=== PATIENT | female | born 1970 | race African-American/Black ===

== ENCOUNTER 2017-07-31 12:11 | Emergency (ER) | payer BC ==
[2017-07-31 12:25] VITALS: BP 135/85
[2017-07-31] MEDS ORDERED: ASPIRIN 81 MG TABLET, CHEWABLE PO ONE (12:42)
--- NOTE | 2017-07-31 12:43 | ER Document Report ---
ED Medical Screen (RME) - General Chief Complaint: Chest Pain Stated Complaint: NAUSEA Time Seen by Provider: 07/31/17 12:38 Notes: RAPID MEDICAL EVALUATION DISCLOSURE I have seen this patient as part of a Rapid Medical Evaluation and, if applicable, placed any initially appropriate orders. The patient will be seen and fully evaluated, including a full history and physical exam, by a provider ( in Main ED or Fast Track) when a room becomes available. 46-year-old female here with complaints of chest pain shortness of breath nausea vomiting left arm tingling lightheadedness ongoing for the past 1 week. The symptoms are sometimes worse with exertion, specifically going up and down the steps. She has a chronic cough ongoing for the past 2 months and sometimes the chest pain is worse with coughing. She has not tried taking anything for the symptoms. Denies prior history of CAD. EXAM Clear to auscultation bilaterally Regular rate and rhythm TRAVEL OUTSIDE OF THE [place] IN LAST 30 DAYS: No - Related Data Allergies/Adverse Reactions: No Known Allergies Allergy (Verified 02/05/16 12:20) Past Medical History Pulmonary Medical History: Reports: Hx Bronchitis - as a child Renal/ Medical History: Reports: Hx Ectopic . Denies: Hx Ovarian Cysts Malignancy Medical History: Denies: Hx Breast Cancer, Hx Ovarian Cancer Psychiatric Medical History: Reports: Hx Bipolar Disorder Past Surgical History: Reports: Hx Abdominal Surgery - ectopic , Hx Dilation and Curettage, Hx Gynecologic Surgery - r/t gonorrhea, Hx Tonsillectomy - Immunizations Immunizations up to date: Yes Hx Diphtheria, Pertussis, Tetanus Vaccination: Yes Physical Exam - Vital signs Vitals: Temp Pulse Resp BP Pulse Ox 97.9 F 99 16 135/85 H 96 07/31/17 12:23 07/31/17 12:23 07/31/17 12:23 07/31/17 12:23 07/31/17 12:23 Course - Vital Signs Vital signs: Temp Pulse Resp BP Pulse Ox 97.9 F 99 16 135/85 H 96 07/31/17 12:23 07/31/17 12:23 07/31/17 12:23 07/31/17 12:23 07/31/17 12:23
--- NOTE | 2017-07-31 13:38 | RADIOLOGY REPORT (SQ) ---
EXAM DESCRIPTION: CHEST 2 VIEWS COMPLETED DATE/TIME: 07/31/2017 1:26 pm REASON FOR STUDY: CP SOB COMPARISON: 11/07/2015 EXAM PARAMETERS: NUMBER OF VIEWS: two views TECHNIQUE: Digital Frontal and Lateral radiographic views of the chest acquired. RADIATION DOSE: NA LIMITATIONS: none FINDINGS: LUNGS AND PLEURA: No opacities, masses or pneumothorax. No pleural effusion. MEDIASTINUM AND HILAR STRUCTURES: No masses or contour abnormalities. HEART AND VASCULAR STRUCTURES: Heart normal size. No evidence for failure. BONES: No acute findings. HARDWARE: None in the chest. OTHER: No other significant finding. IMPRESSION: NO ACUTE RADIOGRAPHIC FINDING IN THE CHEST. TECHNICAL DOCUMENTATION: JOB ID: [id number] [email or web address]- All Rights Reserved Reading location - IP/workstation name: [email or web address]
[2017-07-31 13:44] LABS: ABSOLUTE BASOPHILS # (AUTO) 0.1 10^3/uL (0.0-0.2); ABSOLUTE EOSINOPHILS # (AUTO) 0.1 10^3/uL (0.0-0.6); ABSOLUTE LYMPHOCYTES (AUTO) 1.6 10^3/uL (0.5-4.7); ABSOLUTE MONOCYTES (AUTO) 0.4 10^3/uL (0.1-1.4); ABSOLUTE NEUT (AUTO) 4.4 10^3/uL (1.7-8.2); BASOPHILS % (AUTO) 0.8 % (0-2); EOSINOPHILS % (AUTO) 1.9 % (0-6); HEMATOCRIT 33.8 % (36.0-47.0); HEMOGLOBIN 10.5 g/dL (12.0-15.5); LYMPHOCYTES % (AUTO) 23.9 % (13-45); MEAN CORPUSCULAR HEMOGLOBIN 22.7 pg (27.0-33.4); MEAN CORPUSCULAR HGB CONC 31.1 g/dL (32.0-36.0); MEAN CORPUSCULAR VOLUME 73 fl (80-97); MONOCYTES % (AUTO) 6.8 % (3-13); PLATELET COUNT 341 10^3/uL (150-450); RED BLOOD COUNT 4.62 10^6/uL (3.72-5.28); RED CELL DISTRIBUTION WIDTH 17.7 % (11.5-14.0); SEGMENTED NEUTROPHILS % (AUTO) 66.6 % (42-78); TOTAL CELLS COUNTED % (AUTO) 100 %; WHITE BLOOD COUNT 6.6 10^3/uL (4.0-10.5)
[2017-07-31 13:59] LABS: ANION GAP 12 (5-19); BLOOD UREA NITROGEN 7 mg/dL (7-20); CALCIUM 9.6 mg/dL (8.4-10.2); CARBON DIOXIDE 30 mmol/L (22-30); CHLORIDE 102 mmol/L (98-107); GLUCOSE 80 mg/dL (75-110); POTASSIUM 4.4 mmol/L (3.6-5.0); SODIUM 143.6 mmol/L (137-145)
--- NOTE | 2017-07-31 15:40 | ER Document Report ---
ED General - General Chief Complaint: Chest Pain Stated Complaint: NAUSEA Time Seen by Provider: 07/31/17 12:38 Mode of Arrival: Ambulatory Information source: Patient Notes: 46-year-old female presents with complaints of dry heaves chest pain. Patient notes that she has had these episodes in the past, denies any cardiac history. Patient was seen by triage physician, however and states to nursing staff she wishes to leave immediately and just wants her lab results. Patient does not wish to stay for any further evaluation and care TRAVEL OUTSIDE OF THE [place] IN LAST 30 DAYS: No - HPI Onset: Just prior to arrival Onset/Duration: Sudden Quality of pain: Achy Severity: Mild Pain Level: 1 Associated symptoms: Chest pain, Nausea Exacerbated by: Denies Relieved by: Denies Similar symptoms previously: Yes Recently seen / treated by doctor: No - Related Data Allergies/Adverse Reactions: No Known Allergies Allergy (Verified 02/05/16 12:20) Home Medications: no home meds per pt Past Medical History - Social History Smoking Status: Current Every Day Smoker Cigarette use (# per day): Yes Chew tobacco use (# tins/day): No Smoking Education Provided: No Frequency of alcohol use: None Drug Abuse: None Family History: DM, Hyperlipidemia, Hypertension, Malignancy Patient has suicidal ideation: No Patient has homicidal ideation: No Pulmonary Medical History: Reports: Hx Bronchitis - as a child Renal/ Medical History: Reports: Hx Ectopic . Denies: Hx Ovarian Cysts, Hx Peritoneal Dialysis Malignancy Medical History: Denies: Hx Breast Cancer, Hx Ovarian Cancer Psychiatric Medical History: Reports: Hx Bipolar Disorder Past Surgical History: Reports: Hx Abdominal Surgery - ectopic , Hx Dilation and Curettage, Hx Gynecologic Surgery - r/t gonorrhea, Hx Tonsillectomy - Immunizations Immunizations up to date: Yes Hx Diphtheria, Pertussis, Tetanus Vaccination: Yes Review of Systems - Review of Systems Notes: REVIEW OF SYSTEMS: CONSTITUTIONAL : Denies fever, chills, or sweats. Denies recent illness. EENT: Denies eye, ear, throat, or mouth pain or symptoms. Denies nasal or sinus congestion or discharge. Denies throat, tongue, or mouth swelling or difficulty swallowing. CARDIOVASCULAR: Admits to chest pain. RESPIRATORY: Denies cough, cold, or chest congestion. Denies shortness of breath, difficulty breathing, or wheezing. GASTROINTESTINAL: Admits to dry heaves GENITOURINARY: Denies difficulty urinating, painful urination, burning, frequency, blood in urine, or discharge. FEMALE GENITOURINARY: Denies vaginal bleeding, heavy or abnormal periods, irregular periods. Denies vaginal discharge or odor. MUSCULOSKELETAL: Denies back or neck pain or stiffness. Denies joint pain or swelling. SKIN: Denies rash, lesions or sores. HEMATOLOGIC : Denies easy bruising or bleeding. LYMPHATIC: Denies swollen, enlarged glands. NEUROLOGICAL: Denies confusion or altered mental status. Denies passing out or loss of consciousness. Denies dizziness or lightheadedness. Denies headache. Denies weakness or paralysis or loss of use of either side. Denies problems with gait or speech. Denies sensory loss, numbness, or tingling. Denies seizures. PSYCHIATRIC: Denies anxiety or stress. Denies depression, suicidal ideation, or homicidal ideation. ALL OTHER SYSTEMS REVIEWED AND NEGATIVE. PHYSICAL EXAMINATION: GENERAL: Well-appearing, well-nourished and in no acute distress. HEAD: Atraumatic, normocephalic. EYES: Pupils equal round and reactive to light, extraocular movements intact, conjunctiva are normal. ENT: Nares patent, oropharynx clear without exudates. Moist mucous membranes. NECK: Normal range of motion, supple without lymphadenopathy LUNGS: Breath sounds clear to auscultation bilaterally and equal. No wheezes rales or rhonchi. HEART: Regular rate and rhythm without murmurs ABDOMEN: Soft, nontender, nondistended abdomen. No guarding, no rebound. No masses appreciated. Female : deferred Musculoskeletal: Normal range of motion, no pitting or edema. No cyanosis. NEUROLOGICAL: Cranial nerves grossly intact. Normal speech, normal gait. Normal sensory, motor exams PSYCH: Normal mood, normal affect. SKIN: Warm, Dry, normal turgor, no rashes or lesions noted. Dictation was performed using [employer] voice recognition software Physical Exam - Vital signs Vitals: Temp Pulse Resp BP Pulse Ox 97.9 F 99 16 135/85 H 96 07/31/17 12:23 07/31/17 12:23 07/31/17 12:23 07/31/17 12:23 07/31/17 12:23 Course - Re-evaluation Re-evalutation: 07/31/17 15:41 I spoke with the patient regarding her lab results, I explained to her that this is not a complete cardiac evaluation that she would require to be admitted for her dry heaves and chest pain. Patient is adamant that she leave, I did give her copy of her results, I did explain to her as well that she has microcytic anemia Patient once she found that her lab results insists that she leave immediately. She will be leaving AGAINST MEDICAL ADVICE After performing a Medical Screening Examination, I spoke with the patient at length in regards to leaving the hospital against medical advice. I do not believe the patient should leave but the patient is alert oriented x4, understands the risks and benefits of staying and leaving including disability and . Pt understands that she can return at any time for further care and is more than welcome to do so. Pt verbalizes this understanding. - Vital Signs Vital signs: Temp Pulse Resp BP Pulse Ox 97.9 F 99 16 135/85 H 96 07/31/17 12:23 07/31/17 12:23 07/31/17 12:23 07/31/17 12:23 07/31/17 12:23 - Laboratory Result Diagrams: 07/31/17 13:11 07/31/17 13:11 Laboratory results interpreted by me: 07/31/17 13:11 Hgb 10.5 L Hct 33.8 L MCV 73 L MCH 22.7 L MCHC 31.1 L RDW 17.7 H - Diagnostic Test Radiology reviewed: Image reviewed - 2 view chest x-ray noted no acute abnormality, Reports reviewed - EKG Interpretation by Nh EKG shows normal: Sinus rhythm, [place], Intervals, QRS Complexes Discharge - Discharge Clinical Impression: Dry heaves, Microcytic anemia Condition: Stable Disposition: AGAINST MEDICAL ADVICE Instructions: Chest Pain of Unclear Cause ([facility]), Anemia, Iron Deficiency ([facility]) Additional Instructions: Follow up with your physician tomorrow for further care or return to the ED IMMEDIATELY if symptoms worsen or new concerns occur. If you cannot afford to follow up with your primary care physician a list of low cost clinics have been provided at the end of your discharge papers as well. Prescriptions: Ferrous Sulfate [Iron] 325 mg PO DAILY #30 tablet Metoclopramide HCl [Reglan 10 mg Tablet] 1 - 2 tab PO ASDIR PRN #10 tablet PRN Reason: Forms: Return to Work
--- NOTE | 2017-07-31 15:55 | EKG REPORT ---
SEVERITY:- ABNORMAL ECG - SINUS RHYTHM LOW VOLTAGE IN FRONTAL LEADS CONSIDER ANTEROSEPTAL INFARCT BORDERLINE PROLONGED QT INTERVAL : Confirmed by: Ke Medrano MD 31-Jul-2017 15:55:00
== END 2017-07-31 15:22 | disposition left against medical advice (07) ==
LOC: ER 12:11
DX: R19.8 Other specified symptoms and signs involving the digestive system and abdomen (principal); R11.0 Nausea; D50.9 Iron deficiency anemia, unspecified; R07.9 Chest pain, unspecified; F17.210 Nicotine dependence, cigarettes, uncomplicated; Z53.20 Procedure and treatment not carried out because of patient's decision for unspecified reasons
CPT/HCPCS: 36415; 71046; 80048; 84484; 85025; 93005; 93010; 99285

== ENCOUNTER 2017-08-08 12:26 | Emergency (ER) | payer SELFPAY ==
[2017-08-08 14:06] VITALS: BP 131/69
--- NOTE | 2017-08-08 14:10 | ER Document Report ---
ED Blood Pressure Problem - General Chief Complaint: High Blood Pressure Stated Complaint: BLOOD PRESSURE ISSUE Time Seen by Provider: 08/08/17 12:52 Mode of Arrival: Ambulatory Information source: Patient Notes: 47-year-old female presented ED for complaint of elevated blood pressure reading on Wednesday when she was at work. She states her blood pressure was 168/ 130. Blood pressure is stable in the emergency room. She states she cannot go back to work without a work note stating that it is safe for her to go to work. She is alert oriented respirations regular and unlabored she is able to speak in full sentences and walk with a even steady gait. TRAVEL OUTSIDE OF THE [place] IN LAST 30 DAYS: No - HPI Patient complains to provider of: High blood pressure Onset: Other - Wednesday Onset/Duration: Better Quality of pain: No pain Severity: None Pain Level: Denies Pt currently taking medication for problem: No Associated symptoms: None Similar symptoms previously: No Recently seen / treated by doctor: No - Related Data Allergies/Adverse Reactions: No Known Allergies Allergy (Verified 08/08/17 12:33) Past Medical History - General Information source: Patient - Social History Smoking Status: Current Some Day Smoker Cigarette use (# per day): Yes - 1-2 cigarettes a week Chew tobacco use (# tins/day): No Smoking Education Provided: Yes - 4 minutes Frequency of alcohol use: Social Drug Abuse: None Occupation: Production Lives with: Family Family History: DM, Hyperlipidemia, Hypertension, Malignancy Patient has suicidal ideation: No Patient has homicidal ideation: No - Past Medical History Cardiac Medical History: Reports: Other - Anemia Pulmonary Medical History: Reports: Hx Bronchitis - as a child EENT Medical History: Reports: None Neurological Medical History: Reports: None Endocrine Medical History: Reports: None Renal/ Medical History: Reports: Hx Ectopic , Other - Fibroid cyst Malignancy Medical History: Reports: None GI Medical History: Reports: None Musculoskeltal Medical History: Reports None Skin Medical History: Reports None Psychiatric Medical History: Reports: Hx Bipolar Disorder Traumatic Medical History: Reports: None Infectious Medical History: Reports: None Past Surgical History: Reports: Hx Abdominal Surgery - ectopic , Hx Dilation and Curettage, Hx Gynecologic Surgery - r/t gonorrhea, Hx Tonsillectomy - Immunizations Immunizations up to date: Yes Hx Diphtheria, Pertussis, Tetanus Vaccination: Yes Review of Systems - Review of Systems Constitutional: No symptoms reported EENT: No symptoms reported Cardiovascular: No symptoms reported Respiratory: No symptoms reported Gastrointestinal: No symptoms reported Genitourinary: No symptoms reported Female Genitourinary: No symptoms reported Musculoskeletal: No symptoms reported Skin: No symptoms reported Hematologic/Lymphatic: No symptoms reported Neurological/Psychological: No symptoms reported Physical Exam - Vital signs Vitals: Temp Pulse Resp BP Pulse Ox 97.9 F 87 20 126/79 H 98 08/08/17 12:36 08/08/17 12:36 08/08/17 12:36 08/08/17 12:36 08/08/17 12:36 Interpretation: Normal - General General appearance: Appears well, Alert - HEENT Head: Normocephalic, Atraumatic Eyes: Normal Pupils: PERRL - Respiratory Respiratory status: No respiratory distress Chest status: Nontender Breath sounds: Normal Chest palpation: Normal - Cardiovascular Rhythm: Regular Heart sounds: Normal auscultation Murmur: No - Abdominal Inspection: Normal Distension: No distension Bowel sounds: Normal Tenderness: Nontender Organomegaly: No organomegaly - Back Back: Normal, Nontender - Extremities General upper extremity: Normal inspection, Nontender, Normal color, Normal ROM , Normal temperature General lower extremity: Normal inspection, Nontender, Normal color, Normal ROM , Normal temperature, Normal weight bearing. No: Lazaro's sign - Neurological Neuro grossly intact: Yes Cognition: Normal Orientation: AAOx4 [place] Coma Scale Eye Opening: Spontaneous [place] Coma Scale Verbal: Oriented [place] Coma Scale Motor: Obeys Commands [place] Coma Scale Total: 15 Speech: Normal Motor strength normal: LUE, RUE, LLE, RLE Sensory: Normal - Psychological Associated symptoms: Normal affect, Normal mood - Skin Skin Temperature: Warm Skin Moisture: Dry Skin Color: Normal Course - Re-evaluation Re-evalutation: 08/08/17 21:55 Vital signs were stable throughout her visit at the emergency room. She was given a work note to go back to work tomorrow but instructed to please call her primary doctor tomorrow to schedule a complete physical to find a why her blood pressure was high while at work. Her blood pressure was slightly elevated in the emergency room. - Vital Signs Vital signs: Temp Pulse Resp BP Pulse Ox 98.4 F 91 15 131/69 H 99 08/08/17 13:59 08/08/17 13:59 08/08/17 13:59 08/08/17 13:59 08/08/17 13:59 Discharge - Discharge Clinical Impression: HTN (hypertension) Qualifiers: Hypertension type: unspecified Qualified Code(s): I10 - Essential (primary) hypertension Condition: Stable Disposition: HOME, SELF-CARE Additional Instructions: HIGH BLOOD PRESSURE, NOT TREAT: When your blood pressure was taken today it was elevated. Today's reading was ___126/79 . We do not think you need to have your blood pressure treated today. Sometimes, stress or illness causes a temporary elevation of your blood pressure. We suggest that you get your blood pressure measured again during the next few days to see if this elevated blood pressure is more than a temporary abnormality. If your blood pressure is greater than 150/90 on each occasion, you must have treatment. Some simple things you can do to help are: If you have blood pressure medicine but aren't using it regularly, start taking it again. Get some aerobic exercise for at least 20 minutes on a daily basis. (See your doctor before beginning a new exercise program.) Eat a low-fat diet. Lose excess weight. Avoid salty foods and avoid adding salt to any of the foods you eat. Avoid diet pills, decongestants, "energizing" herbs, and other medicines that elevate blood pressure. If left untreated, hypertension greatly enhances your risk for developing heart disease and strokes. Please don't ignore this problem. Your blood pressure was elevated at work at 168/130 as you have stated. He said at that time your pulse was 106. You states you have a history of anxiety. While in the emergency room your blood pressure was 126/79. You do not need any treatment at this time from us. It is very important that you follow-up with your primary doctor by telephone tomorrow and make an appointment to follow-up with this blood pressure. FOLLOW-UP CARE: If you have been referred to a physician for follow-up care, call the physician s office for an appointment as you were instructed or within the next two days. If you experience worsening or a significant change in your symptoms, notify the physician immediately or return to the Emergency Department at any time for re-evaluation. Forms: Elevated Blood Pressure, Smoking Cessation Education, Return to Work Referrals: DILIP WEST MD [ACTIVE STAFF] - Follow up as needed
== END 2017-08-08 14:05 | disposition home or self-care (01) ==
LOC: ER 12:26
DX: I10 Essential (primary) hypertension (principal); F17.210 Nicotine dependence, cigarettes, uncomplicated
CPT/HCPCS: 99283; 99406

== ENCOUNTER 2017-09-24 08:51 | Observation (INO) | payer SELFPAY ==
[2017-09-24 09:56] LABS: ABSOLUTE EOSINOPHILS # (AUTO) 0.2 10^3/uL (0.0-0.6); ABSOLUTE LYMPHOCYTES (AUTO) 1.2 10^3/uL (0.5-4.7); ABSOLUTE NEUT (AUTO) 9.9 10^3/uL (1.7-8.2); BASOPHILS % (AUTO) 0.3 % (0-2); EOSINOPHILS % (AUTO) 1.3 % (0-6); HEMATOCRIT 32.6 % (36.0-47.0); HEMOGLOBIN 10.2 g/dL (12.0-15.5); LYMPHOCYTES % (AUTO) 9.6 % (13-45); MEAN CORPUSCULAR HGB CONC 31.4 g/dL (32.0-36.0); MEAN CORPUSCULAR VOLUME 70 fl (80-97); MONOCYTES % (AUTO) 7.9 % (3-13); PLATELET COUNT 465 10^3/uL (150-450); RED BLOOD COUNT 4.66 10^6/uL (3.72-5.28); RED CELL DISTRIBUTION WIDTH 17.8 % (11.5-14.0); SEGMENTED NEUTROPHILS % (AUTO) 80.9 % (42-78); TOTAL CELLS COUNTED % (AUTO) 100 %; WHITE BLOOD COUNT 12.2 10^3/uL (4.0-10.5)
[2017-09-24] MEDS ORDERED: HYDROMORPHONE HCL INJ/PF 2 MG/ML AMPULE IV ONE (10:02)
[2017-09-24] MEDS ORDERED: METOCLOPRAMIDE HCL INJ/PF 10 MG/2 ML SDV IV ONE (10:02)
[2017-09-24 10:08] LABS: ALANINE AMINOTRANSFERASE 13 U/L (9-52); ALBUMIN 4.1 g/dL (3.5-5.0); ALKALINE PHOSPHATASE 84 U/L (38-126); ANION GAP 14 (5-19); ASPARTATE AMINO TRANSFERASE 16 U/L (14-36); BILIRUBIN,DIRECT 0.4 mg/dL (0.0-0.4); BILIRUBIN,TOTAL 0.8 mg/dL (0.2-1.3); BLOOD UREA NITROGEN 6 mg/dL (7-20); CALCIUM 9.5 mg/dL (8.4-10.2); CARBON DIOXIDE 25 mmol/L (22-30); CHLORIDE 102 mmol/L (98-107); GLUCOSE 101 mg/dL (75-110); LIPASE 41.2 U/L (23-300); POTASSIUM 3.9 mmol/L (3.6-5.0); SODIUM 140.9 mmol/L (137-145)
--- NOTE | 2017-09-24 10:09 | ER Document Report ---
ED General - General Chief Complaint: Abdominal Pain Stated Complaint: RIGHT SIDE PAIN Time Seen by Provider: 09/24/17 10:00 Mode of Arrival: Ambulatory Information source: Patient, [facility] Records Notes: 47-year-old female with hypertension, history of tubo-ovarian abscess presents with complaint of right lower quadrant pain that started 3 days prior to arrival. Pain is described as stabbing, throbbing and constant. She denies any alleviating factors but states that moving and coughing makes the pain worse. Patient states that she did undergo drainage of her tubo-ovarian abscess 4 years ago and states that the pain feels similar. Patient has had associated nausea without vomiting. She admits to vaginal discharge. She states she is currently sexually active but does use condoms every time. Her last menstrual period was September 13. TRAVEL OUTSIDE OF THE [place] IN LAST 30 DAYS: No - HPI Onset: Last week Onset/Duration: Gradual, Persistent, Worse Quality of pain: Stabbing, Throbbing Severity: Moderate Associated symptoms: Nausea. denies: Fever, Vomiting Exacerbated by: Movement Relieved by: Remaining still Similar symptoms previously: Yes Recently seen / treated by doctor: No - Related Data Allergies/Adverse Reactions: No Known Allergies Allergy (Verified 09/24/17 08:52) Past Medical History - General Information source: Patient - Social History Smoking Status: Current Every Day Smoker Cigarette use (# per day): Yes - 10 Smoking Education Provided: Yes - Patient counselled regarding cessation for 4 minutes Frequency of alcohol use: Occasional Drug Abuse: Marijuana Lives with: Family Family History: DM, Hyperlipidemia, Hypertension, Malignancy Patient has suicidal ideation: No Patient has homicidal ideation: No - Past Medical History Cardiac Medical History: Reports: Hx Hypertension Pulmonary Medical History: Reports: Hx Bronchitis - as a child Renal/ Medical History: Reports: Hx Ectopic . Denies: Hx Peritoneal Dialysis Psychiatric Medical History: Reports: Hx Bipolar Disorder Past Surgical History: Reports: Hx Abdominal Surgery - ectopic , Hx Dilation and Curettage, Hx Gynecologic Surgery - r/t gonorrhea, Hx Tonsillectomy - Immunizations Immunizations up to date: Yes Hx Diphtheria, Pertussis, Tetanus Vaccination: Yes Review of Systems - Review of Systems Notes: REVIEW OF SYSTEMS: CONSTITUTIONAL : Denies fever, chills, or sweats. Denies recent illness. Denies weight loss, recent hospitalizations. EENT: Denies visual changes, eye pain. Denies nasal or sinus congestion or discharge. Denies sore throat, oral lesions, difficulty swallowing. CARDIOVASCULAR: Denies chest pain. Denies palpitations. Denies lower extremity edema. RESPIRATORY: Denies cough, cold, or chest congestion. Denies shortness of breath, wheezing. GASTROINTESTINAL: Denies vomiting, or diarrhea. Denies blood in vomitus, stools, or per rectum. Denies black, tarry stools. Denies constipation. GENITOURINARY: Denies difficulty urinating, painful urination, frequency, blood in urine. MUSCULOSKELETAL: Denies back or neck pain or stiffness. Denies joint pain or swelling. SKIN: Denies rash, lesions or sores. HEMATOLOGIC : Denies easy bruising or bleeding. LYMPHATIC: Denies swollen glands. NEUROLOGICAL: Denies confusion or altered mental status. Denies passing out or loss of consciousness. Denies dizziness or lightheadedness. Denies headache. Denies weakness or paralysis. Denies problems difficulty with ambulation, slurred speech. Denies sensory loss, numbness, or tingling. Denies seizures. PSYCHIATRIC: Denies anxiety or stress. Denies depression, suicidal ideation, or homicidal ideation. Denies visual or auditory hallucinations. Physical Exam - Vital signs Vitals: Temp Pulse Resp BP Pulse Ox 99.1 F 107 H 24 H 129/88 H 98 09/24/17 08:59 09/24/17 08:59 09/24/17 08:59 09/24/17 08:59 09/24/17 08:59 - Notes Notes: PHYSICAL EXAMINATION: GENERAL: Well-appearing, well-nourished and in no acute distress. HEAD: Atraumatic, normocephalic. EYES: Pupils equal round and reactive to light, extraocular movements intact, conjunctiva are normal. ENT: Nares patent, oropharynx clear without exudates. Moist mucous membranes. NECK: Normal range of motion, supple without lymphadenopathy LUNGS: Breath sounds clear to auscultation bilaterally and equal. No wheezes rales or rhonchi. HEART: Regular rate and rhythm without murmurs ABDOMEN: Soft, tender to palpation in the right lower quadrant, nondistended abdomen. No guarding, no rebound. No masses appreciated. Female : No external vaginal lesions, thin scant white vaginal discharge, no cervical motion tenderness, no adnexal fullness, tenderness. Musculoskeletal: Normal range of motion, no pitting or edema. No cyanosis. NEUROLOGICAL: Cranial nerves grossly intact. Normal speech, normal gait. Normal sensory, motor exams PSYCH: Normal mood, normal affect. SKIN: Warm, Dry, normal turgor, no rashes or lesions noted. Course - Re-evaluation Re-evalutation: 09/24/17 11:42 Laboratory 09/24/17 09/24/17 09/24/17 09:28 09:28 10:47 WBC 12.2 H RBC 4.66 Hgb 10.2 L Hct 32.6 L MCV 70 L MCH 22.0 L MCHC 31.4 L RDW 17.8 H Plt Count 465 H Seg Neutrophils % 80.9 H Lymphocytes % 9.6 L Monocytes % 7.9 Eosinophils % 1.3 Basophils % 0.3 Absolute Neutrophils 9.9 H Absolute Lymphocytes 1.2 Absolute Monocytes 1.0 Absolute Eosinophils 0.2 Absolute Basophils 0.0 Sodium 140.9 Potassium 3.9 Chloride 102 Carbon Dioxide 25 Anion Gap 14 BUN 6 L Creatinine 0.88 Est GFR ( Amer) > 60 Est GFR (Non-Af Amer) > 60 Glucose 101 Calcium 9.5 Total Bilirubin 0.8 Direct Bilirubin 0.4 Neonat Total Bilirubin Not Reportable Neonat Direct Bilirubin Not Reportable Neonat Indirect Bili Not Reportable AST 16 ALT 13 Alkaline Phosphatase 84 Total Protein 7.0 Albumin 4.1 Lipase 41.2 Urine Color YELLOW Urine Appearance CLEAR Urine pH 6.0 Ur Specific Melfa > 1.060 Urine Protein NEGATIVE Urine Glucose (UA) NEGATIVE Urine Ketones NEGATIVE Urine Blood NEGATIVE Urine Nitrite NEGATIVE Urine Bilirubin NEGATIVE Urine Urobilinogen NEGATIVE Ur Leukocyte Esterase NEGATIVE Urine WBC (Auto) 2 Urine RBC (Auto) 2 Squamous Epi Cells Auto 5 Urine Mucus (Auto) RARE Urine Ascorbic Acid NEGATIVE Urine HCG, Qual NEGATIVE Trichomonas (Wet Prep) Vaginal WBC Vaginal Yeast 09/24/17 10:53 WBC RBC Hgb Hct MCV MCH MCHC RDW Plt Count Seg Neutrophils % Lymphocytes % Monocytes % Eosinophils % Basophils % Absolute Neutrophils Absolute Lymphocytes Absolute Monocytes Absolute Eosinophils Absolute Basophils Sodium Potassium Chloride Carbon Dioxide Anion Gap BUN Creatinine Est GFR ( Amer) Est GFR (Non-Af Amer) Glucose Calcium Total Bilirubin Direct Bilirubin Neonat Total Bilirubin Neonat Direct Bilirubin Neonat Indirect Bili AST ALT Alkaline Phosphatase Total Protein Albumin Lipase Urine Color Urine Appearance Urine pH Ur Specific Melfa Urine Protein Urine Glucose (UA) Urine Ketones Urine Blood Urine Nitrite Urine Bilirubin Urine Urobilinogen Ur Leukocyte Esterase Urine WBC (Auto) Urine RBC (Auto) Squamous Epi Cells Auto Urine Mucus (Auto) Urine Ascorbic Acid Urine HCG, Qual Trichomonas (Wet Prep) TRICHOMONAS SEEN Vaginal WBC NO WBCS SEEN Vaginal Yeast NO YEAST SEEN Abdomen/Pelvis CT 09/24/17 10:00 IMPRESSION: Enlarged fibroid uterus. Complex right ovarian cyst versus tubo- ovarian abscess, or hydrosalpinx/pyosalpinx. 09/24/17 11:43 47-year-old female with hypertension, history of tubo-ovarian abscess presents with complaint of right lower quadrant pain that started 3 days prior to arrival. Pain is described as stabbing, throbbing and constant. She denies any alleviating factors but states that moving and coughing makes the pain worse. Patient states that she did undergo drainage of her tubo-ovarian abscess 4 years ago and that the symptoms feel similar. Patient has had associated nausea without vomiting. She admits to vaginal discharge. She states she is currently sexually active but does use condoms every time. Her last menstrual period was September 13. Vital signs reviewed, patient is afebrile, normotensive and not hypoxic. She does not appear toxic or dehydrated but she does appear to be in a significant amount of pain. Exam is significant for right lower quadrant abdominal pain with guarding. Pelvic exam showed scant thin white discharge, no cervical motion tenderness. Gonorrhea and Chlamydia are pending, trichomonas seen on wet prep- flagyl given. 09/24/17 11:[address] Rouse from [facility] regarding concern for tubo-ovarian abscess. She recommends Rocephin at this time and admission for observation. Patient is agreeable to admission and states that her pain has greatly improved since receiving IV Dilaudid. - Vital Signs Vital signs: Temp Pulse Resp BP Pulse Ox 98.3 F 93 18 115/79 100 09/24/17 14:52 09/24/17 14:38 09/24/17 14:38 09/24/17 14:38 09/24/17 14:38 - Laboratory Result Diagrams: 09/24/17 09:28 09/24/17 09:28 Laboratory results interpreted by me: 09/24/17 09/24/17 09:28 09:28 WBC 12.2 H Hgb 10.2 L Hct 32.6 L MCV 70 L MCH 22.0 L MCHC 31.4 L RDW 17.8 H Plt Count 465 H Seg Neutrophils % 80.9 H Lymphocytes % 9.6 L Absolute Neutrophils 9.9 H BUN 6 L - Diagnostic Test Radiology reviewed: Image reviewed, Reports reviewed Discharge - Discharge Clinical Impression: RLQ abdominal pain, Tubo-ovarian abscess, Trichomonas infection Uterine fibroid Qualifiers: Uterine leiomyoma location: unspecified location Qualified Code(s): D25.9 - Leiomyoma of uterus, unspecified Condition: Good Disposition: ADMITTED OBSERVATION Admitting Provider: [facility] Admitted: Post
[2017-09-24 11:14] LABS: T.VAGINALIS (WET MOUNT) TRICHOMONAS SEEN; WBCS (WET MOUNT) NO WBCS SEEN; YEAST (WET MOUNT) NO YEAST SEEN
[2017-09-24 11:14] LABS: APPEARANCE,URINE CLEAR; BILIRUBIN,URINE NEGATIVE (NEGATIVE); COLOR,URINE YELLOW; GLUCOSE, URINE NEGATIVE (NEGATIVE); KETONES,URINE NEGATIVE (NEGATIVE); LEUKOCYTE ESTERASE,URINE NEGATIVE (NEGATIVE); NITRITE,URINE NEGATIVE (NEGATIVE); PROTEIN,URINE NEGATIVE (NEGATIVE); URINE SPECIFIC GRAVITY > 1.060; UROBILINOGEN,URINE NEGATIVE mg/dL (<2.0)
--- NOTE | 2017-09-24 11:18 | RADIOLOGY REPORT (SQ) ---
EXAM DESCRIPTION: CT ABD/PELVIS WITH IV ONLY COMPLETED DATE/TIME: 09/24/2017 10:33 am REASON FOR STUDY: RLQ abdominal pain h/o tuboovarian absc COMPARISON: 02/05/2016 TECHNIQUE: CT scan of the abdomen and pelvis performed using helical scanning technique with dynamic intravenous contrast injection. No oral contrast. Images reviewed with lung, soft tissue, and bone windows. Reconstructed coronal and sagittal MPR images reviewed. Delayed images for evaluation of the urinary system also acquired. All images stored on PACS. All CT scanners at this facility use dose modulation, iterative reconstruction, and/or weight based d osing when appropriate to reduce radiation dose to as low as reasonably achievable (ALARA). [facility]: Dose Right [facility]: CareDose [facility]: Dose Right [facility]: Teradose 4D [facility]: Dimmi CONTRAST TYPE AND DOSE: contrast/concentration: Isovue 370.00 mg/ml; Total Contrast Delivered: 98.0 ml; Total Saline Delivered: 55.0 ml RENAL FUNCTION: None required. The patient is less than 50 years old. RADIATION DOSE: CT Rad equipment meets quality standard of care and radiation dose reduction techniq ues were employed. CTDIvol: 14.0 - 17.6 mGy. DLP: 1729 mGy-cm.. LIMITATIONS: None. FINDINGS: LOWER CHEST: No significant findings. No nodules or infiltrates. LIVER: Normal size. No masses. No dilated ducts. SPLEEN: Normal size. No focal lesions. PANCREAS: No masses. No significant calcifications. No adjacent inflammation or peripancreatic fluid collections. Pancreatic duct not dilated. GALLBLADDER: No identified stones by CT criteria. No inflammatory changes to suggest cholecystitis. ADRENAL GLANDS: No significant masses or asymmetry. RIGHT KIDNEY AND URETER: No solid masses. No significant calcifications. No hydronephrosis or hyd roureter. LEFT KIDNEY AND URETER: No solid masses. No significant calcifications. No hydronephrosis or hydr oureter. AORTA AND VESSELS: No aneurysm. No dissection. Renal arteries, SMA, celiac without stenosis. RETROPERITONEUM: No retroperitoneal adenopathy, hemorrhage or masses. BOWEL AND PERITONEAL CAVITY: No masses or inflammatory changes. No free fluid or peritoneal masses. APPENDIX: Not visualized. PELVIS: Enlarged fibroid uterus not significantly changed. Cystic lesion left adnexum measuring 7 cm . There is a cystic tubular structure in the right adnexum measuring about 2.9 cm in maximum diamete r. This could either represent a cyst with internal septations or fluid in the fallopian tube. ABDOMINAL WALL: No masses. No hernias. BONES: No significant or acute findings. OTHER: No other significant finding. IMPRESSION: Enlarged fibroid uterus. Complex right ovarian cyst versus tubo-ovarian abscess, or hyd rosalpinx/pyosalpinx. TECHNICAL DOCUMENTATION: JOB ID: [id number] Quality ID # [id number]: Final reports with documentation of one or more dose reduction techniques (e.g., Au tomated exposure control, adjustment of the mA and/or kV according to patient size, use of iterative reconstruction technique) 2010 [employer]- All Rights Reserved Reading location - IP/workstation name: [email or web address]
[2017-09-24] MEDS ORDERED: PIPERACILLIN/TAZOBACTAM 3.375 GM VIAL IV ONE (11:30)
[2017-09-24] MEDS ORDERED: CEFTRIAXONE INJ 250 MG VIAL IM ONE (11:36)
[2017-09-24] MEDS ORDERED: METRONIDAZOLE 500 MG TABLET PO ONE ×2 (11:44→11:52)
[2017-09-24 12:33] LABS: CHLAM PCR NOT DETECTED (NOT DETECT); GON PCR NOT DETECTED (NOT DETECT)
[2017-09-24] MEDS ORDERED: DOXYCYCLINE HYCLATE 100 MG TABLET PO ONE (13:00)
[2017-09-24] MEDS ORDERED: HYDROMORPHONE HCL INJ/PF 2 MG/ML AMPULE IV PRN (14:05)
--- NOTE | 2017-09-24 14:29 | PDOC H&P ---
History of Present Illness Admission Date/PCP: 09/24/17 11:53 Patient complains of: RLQ pain and decreased appetite since Wednesday. History of Present Illness: ALBIN DEL CASTILLO is a 47 year old female (H/o ectopic) with known uterine fibroids and history of bilateral hydrosalpinx noted in 2015. She was planned to have RA Hyst with Robin Salpingectomy in 08/2016 but apparently never came in for procedure. Also noted at that time to have complex left ovarian cyst (neg CA 125/19-9) which has apparently resolved at this time. She has not been seen in our office in 08/2016 when she had hysterectomy consult for RA hyst as above. She presents today with several day history of pain in RLQ that is "exactly like when she had her last TOA". She reports that she stayed at home as long as she could but can not take the pain anymore and that she has not eaten in 3 days due to the pain. She reports that she is sexually active with one person and has been with that person for 3 years. She reports that she had TOA in the past in approx 7 years ago on the same side and it was due to chlamydia. Past Medical History Menses: heavy/fibroids Gynecological Infection: Yes Gynecological History Note: h/o chlamydia and TOA on right in past Baby 1 Delivery: Spontaneous Vaginal Delivery 2 Ectopic Pregnacy Delivery: Other - Ectopic with vert midline incision Cardiac Medical History: Reports: Hypertension Pulmonary Medical History: Reports: Bronchitis - as a child Psychiatric Medical History: Reports: Bipolar Disorder Past Surgical History Past Surgical History: Reports: Tonsillectomy, Other - Vertical midline incision with ectopic /tubes clipped d/t ectopic Social History Information Source: Patient, Dr. Office, [facility] Records Lives with: Family Smoking Status: Current Some Day Smoker Frequency of Alcohol Use: Occasional Hx Recreational Drug Use: Yes Drugs: Marijuana Hx Prescription Drug Abuse: No Family History Family History: DM, Hyperlipidemia, Hypertension, Malignancy Parental Family History Reviewed: No Children Family History Reviewed: NA Sibling(s) Family History Reviewed.: NA Medication/Allergy Home Medications: No Home Medications 09/24/17 Allergies/Adverse Reactions: No Known Allergies Allergy (Verified 09/24/17 08:52) Review of Systems Constitutional: ABSENT: chills, fever(s), headache(s), weight gain, weight loss Breasts: PRESENT: as per HPI Cardiovascular: ABSENT: chest pain, dyspnea on exertion, edema, orthropnea, palpitations Respiratory: ABSENT: cough, hemoptysis Gastrointestinal: PRESENT: abdominal pain, bloating, nausea. ABSENT: diarrhea, heartburn, melena, vomiting Genitourinary: ABSENT: dysuria, hematuria Musculoskeletal: ABSENT: joint swelling Integumentary: ABSENT: rash, wounds Neurological: ABSENT: abnormal gait, abnormal speech, confusion, dizziness, focal weakness, syncope Psychiatric: ABSENT: anxiety, depression, homidical ideation, suicidal ideation Endocrine: ABSENT: cold intolerance, heat intolerance, polydipsia, polyuria Hematologic/Lymphatic: ABSENT: easy bleeding, easy bruising Physical Exam - Physical Exam Vital Signs: Temp Pulse Resp BP Pulse Ox 97.3 F 107 H 24 H 108/81 98 09/24/17 12:11 09/24/17 08:59 09/24/17 08:59 09/24/17 12:06 09/24/17 12:06 General appearance: PRESENT: no acute distress, well-developed, well-nourished Head exam: PRESENT: atraumatic, normocephalic Respiratory exam: PRESENT: clear to auscultation robin, symmetrical, unlabored, wheezes. ABSENT: tachypnea Cardiovascular exam: PRESENT: RRR. ABSENT: diastolic murmur, rubs, systolic murmur Vascular exam: PRESENT: normal capillary refill GI/Abdominal exam: PRESENT: guarding, normal bowel sounds, soft, tenderness - on right. ABSENT: distended, mass, organolmegaly, rebound, rigid Rectal exam: PRESENT: deferred Extremities exam: PRESENT: full ROM. ABSENT: calf tenderness, clubbing, pedal edema Musculoskeletal exam: PRESENT: ambulatory Neurological exam: PRESENT: alert, awake, oriented to person, oriented to place , oriented to time, oriented to situation, CN II-XII grossly intact. ABSENT: motor sensory deficit Psychiatric exam: PRESENT: appropriate affect, normal mood. ABSENT: homicidal ideation, suicidal ideation Skin exam: PRESENT: dry, intact, warm. ABSENT: cyanosis, rash Result Impressions: Abdomen/Pelvis CT 09/24/17 10:00 IMPRESSION: Enlarged fibroid uterus. Complex right ovarian cyst versus tubo- ovarian abscess, or hydrosalpinx/pyosalpinx. Status: Imported from PACS Assessment & Plan - Diagnosis (1) Tubo-ovarian abscess Is this a current diagnosis for this admission?: Yes Plan: Pt with significant pain and needing to have IV pain meds in ER. Admit for pain control and IV abx. Mefoxitin/Doxy/Flagyl ordered. Then discharge home on 2 wks of Abx - Doxy/Flagyl.. Rocephin given in ER (2) Trichomonas infection Is this a current diagnosis for this admission?: Yes Plan: Treated with Metronidazole 2g po x one dose. (3) Uterine fibroid Qualifiers: Uterine leiomyoma location: unspecified location Qualified Code(s): D25.9 - Leiomyoma of uterus, unspecified Is this a current diagnosis for this admission?: Yes Plan: known sig uterine fibroids causing DUB/menorrhagia. Seen in office and was supposed to have RA hyst with Robin salpingectomy in 08/2016 but never followed through with surgery. Will need to f/u in office to get this scheduled again in the future - Time Time Spent: 30 to 50 Minutes Critical Time spent with patient: Less than 15 minutes Smoking Cessation Education: 3 to 10 minutes Medications reviewed and adjusted accordingly: Yes Anticipated discharge: Home Within: within 48 hours - Inpatient Certification Based on my medical assessment, after consideration of the patient's comorbidities, presenting symptoms, or acuity I expect that the services needed warrant INPATIENT care.: Yes I certify that my determination is in accordance with my understanding of Medicare's requirements for reasonable and necessary INPATIENT services [42 CFR 412.3e].: Yes Medical Necessity: Need For IV Fluids, Need for Pain Control, Need for IV Antibiotics Post Hospital Care: D/C Campaign Director Documentation - Plan Summary Plan Summary: pain control and IV abx for 24 to 48 hours. currently afebrile.
[2017-09-24] MEDS: OXYCODONE-ACETAMINOPHEN 5-325 MG TABLET PO PRN ×3 (14:35→22:45)
[2017-09-24] MEDS: CEFOXITIN SODIUM 2 GM in NORMAL SALINE 100 ML IV SCH ×2 (14:36→20:35)
[2017-09-24] MEDS ORDERED: CEFOXITIN SODIUM 2 GM in DEXTROSE 5%-WATER 100 ML IV SCH (15:00)
[2017-09-24] MEDS: DOXYCYCLINE HYCLATE 100 MG TABLET PO SCH (22:24)
[2017-09-25] MEDS: CEFOXITIN SODIUM 2 GM in NORMAL SALINE 100 ML IV SCH ×4 (03:09→21:06)
[2017-09-25] MEDS: OXYCODONE-ACETAMINOPHEN 5-325 MG TABLET PO PRN ×4 (03:16→22:03)
[2017-09-25] MEDS: DOXYCYCLINE HYCLATE 100 MG TABLET PO SCH ×2 (10:26→21:06)
[2017-09-25] MEDS: DIPHENHYDRAMINE HCL 50 MG/ML VIAL IV PRN (11:21)
[2017-09-25] MEDS: HYDROXYZINE PAMOATE 50 MG CAPSULE PO PRN ×2 (13:48→21:06)
[2017-09-26] MEDS: DIPHENHYDRAMINE HCL 50 MG/ML VIAL IV PRN ×2 (00:08→11:20)
[2017-09-26] MEDS: CEFOXITIN SODIUM 2 GM in NORMAL SALINE 100 ML IV SCH ×3 (03:23→15:31)
[2017-09-26] MEDS: OXYCODONE-ACETAMINOPHEN 5-325 MG TABLET PO PRN ×2 (03:28→08:58)
--- NOTE | 2017-09-26 08:57 | PDOC PROGRESS REPORT ---
Subjective Progress Note for:: 09/25/17 Subjective:: pt seen on turnover rounds with Dr. Rain. No note written by covering provider yesterday. Still with intermittent pain but pain somewhat under control with po meds. + tolerating po without difficulty, + flatus, no BM, denies fevers/chills, denies n/v. Reason For Visit: TUBO-OVARIAN ABCESS Physical Exam - Physical Exam Vital Signs: Temp Pulse Resp BP Pulse Ox 99.0 F 88 17 112/76 97 09/26/17 07:30 09/26/17 07:30 09/26/17 07:30 09/26/17 07:30 09/26/17 07:30 Intake & Output 09/25/17 09/26/17 09/27/17 06:59 06:59 06:59 Intake Total 200 1400 Balance 200 1400 General appearance: PRESENT: no acute distress, well-developed, well-nourished Head exam: PRESENT: atraumatic, normocephalic Respiratory exam: PRESENT: clear to auscultation robin, symmetrical, unlabored. ABSENT: tachypnea Cardiovascular exam: PRESENT: RRR. ABSENT: diastolic murmur, rubs, systolic murmur GI/Abdominal exam: PRESENT: normal bowel sounds, soft, tenderness - RLQ ttp. ABSENT: distended, guarding, mass, organolmegaly, rebound Rectal exam: PRESENT: deferred Extremities exam: PRESENT: full ROM. ABSENT: calf tenderness, clubbing, pedal edema Musculoskeletal exam: PRESENT: ambulatory Neurological exam: PRESENT: alert, awake, oriented to person, oriented to place , oriented to time, oriented to situation, CN II-XII grossly intact. ABSENT: motor sensory deficit Result Impressions: Abdomen/Pelvis CT 09/24/17 10:00 IMPRESSION: Enlarged fibroid uterus. Complex right ovarian cyst versus tubo- ovarian abscess, or hydrosalpinx/pyosalpinx. Status: Imported from PACS Assessment & Plan - Diagnosis (1) Tubo-ovarian abscess Is this a current diagnosis for this admission?: Yes Plan: Pt with significant pain and needing to have IV pain meds in ER. Admitted for pain control and IV abx. Mefoxitin/Doxy/Flagyl ordered - needs to cont for 24 more hours. Then discharge home on 2 wks of Abx - Doxy/Flagyl.. Rocephin given in ER. GC/Chlam neg (2) Trichomonas infection Is this a current diagnosis for this admission?: Yes Plan: Treated with Metronidazole 2g po x one dose. (3) Uterine fibroid Qualifiers: Uterine leiomyoma location: unspecified location Qualified Code(s): D25.9 - Leiomyoma of uterus, unspecified Is this a current diagnosis for this admission?: Yes Plan: known sig uterine fibroids causing DUB/menorrhagia. Seen in office and was supposed to have RA hyst with Robin salpingectomy in 08/2016 but never followed through with surgery. Will need to f/u in office to get this scheduled again in the future after infection clears. needs program services planner to help with medicaid to cover surgery and hopefully hospital stay - Time Time Spent with patient: 15-24 minutes Medications reviewed and adjusted accordingly: Yes Anticipated discharge: Home Within: within 24 hours - Inpatient Certification Based on my medical assessment, after consideration of the patient's comorbidities, presenting symptoms, or acuity I expect that the services needed warrant INPATIENT care.: Yes I certify that my determination is in accordance with my understanding of Medicare's requirements for reasonable and necessary INPATIENT services [42 CFR 412.3e].: Yes Medical Necessity: Need For IV Fluids, Need for Pain Control, Need for IV Antibiotics Post Hospital Care: D/C Claim Benefit Specialist Documentation
[2017-09-26] MEDS: DOXYCYCLINE HYCLATE 100 MG TABLET PO SCH (09:03)
--- NOTE | 2017-09-26 09:40 | PDOC PROGRESS REPORT ---
Subjective Progress Note for:: 09/26/17 Subjective:: Still with intermittent pain but pain under control with po meds. had itching yesterday - given rx vistaril for itching which has improved her itching. + tolerating po without difficulty, + flatus, no BM, denies fevers/chills, denies n/v. Reason For Visit: [facility] ABCESS Physical Exam - Physical Exam Vital Signs: Temp Pulse Resp BP Pulse Ox 99.0 F 88 17 112/76 97 09/26/17 07:30 09/26/17 07:30 09/26/17 07:30 09/26/17 07:30 09/26/17 07:30 Intake & Output 09/25/17 09/26/17 09/27/17 06:59 06:59 06:59 Intake Total 200 1400 Balance 200 1400 General appearance: PRESENT: no acute distress, well-developed, well-nourished Head exam: PRESENT: atraumatic, normocephalic Respiratory exam: PRESENT: clear to auscultation robin, symmetrical, unlabored. ABSENT: tachypnea Cardiovascular exam: PRESENT: RRR. ABSENT: diastolic murmur, rubs, systolic murmur GI/Abdominal exam: PRESENT: normal bowel sounds, soft, tenderness - RLQ ttp. ABSENT: distended, guarding, mass, organolmegaly, rebound Rectal exam: PRESENT: deferred Extremities exam: PRESENT: full ROM. ABSENT: calf tenderness, clubbing, pedal edema Neurological exam: PRESENT: alert, awake, oriented to person, oriented to place , oriented to time, oriented to situation, CN II-XII grossly intact. ABSENT: motor sensory deficit Psychiatric exam: PRESENT: appropriate affect, normal mood. ABSENT: homicidal ideation, suicidal ideation Skin exam: PRESENT: dry, intact, warm. ABSENT: cyanosis, rash Result Impressions: Abdomen/Pelvis CT 09/24/17 10:00 IMPRESSION: Enlarged fibroid uterus. Complex right ovarian cyst versus tubo- ovarian abscess, or hydrosalpinx/pyosalpinx. Status: Imported from PACS Assessment & Plan - Diagnosis (1) Tubo-ovarian abscess Is this a current diagnosis for this admission?: Yes Plan: Pt with significant pain and needing to have IV pain meds in ER. Admitted for pain control and IV abx - now still with pain but controlled on po meds. Reviewed with patient that pain will continue but she continues to be afebrile and is now tolerating po (was not able to eat prior to admission) and can have continued f/u as an outpatient.. Mefoxitin/Doxy/Flagyl ordered - now on for approx 48 hours - last dose will be at 1500 - plan to discharge at that time. Then discharge home on 2 wks of Abx - Doxy/Flagyl.. Rocephin given in ER. GC/ Chlam neg (2) Trichomonas infection Is this a current diagnosis for this admission?: Yes Plan: Treated with Metronidazole 2g po x one dose. (3) Uterine fibroid Qualifiers: Uterine leiomyoma location: unspecified location Qualified Code(s): D25.9 - Leiomyoma of uterus, unspecified Is this a current diagnosis for this admission?: Yes Plan: known sig uterine fibroids causing DUB/menorrhagia. Seen in office and was supposed to have RA hyst with Robin salpingectomy in 08/2016 but never followed through with surgery. Will need to f/u in office to get this scheduled again in the future after infection clears. needs associate media planner to help with medicaid to cover surgery and hopefully hospital stay - Time Time Spent with patient: Less than 15 minutes Medications reviewed and adjusted accordingly: Yes Anticipated discharge: Home Within: within 24 hours - Inpatient Certification Based on my medical assessment, after consideration of the patient's comorbidities, presenting symptoms, or acuity I expect that the services needed warrant INPATIENT care.: Yes I certify that my determination is in accordance with my understanding of Medicare's requirements for reasonable and necessary INPATIENT services [42 CFR 412.3e].: Yes Medical Necessity: Need for IV Antibiotics Post Hospital Care: D/C Equipment Processor Documentation - Plan Summary Plan Summary: associate media planner placed - discharge to home when last abx done at 1500
[2017-09-26] MEDS: HYDROXYZINE PAMOATE 50 MG CAPSULE PO PRN (11:58)
--- NOTE | 2017-09-26 12:27 | PDOC DISCHARGE SUMMARY ---
General - Admit/Disc Date/PCP Admission Date/Primary Care Provider: 09/24/17 11:53 Discharge Date: 09/26/17 - Discharge Diagnosis (1) Tubo-ovarian abscess Is this a current diagnosis for this admission?: Yes Summary: Pt with significant pain and needing to have IV pain meds in ER. Admitted for pain control and IV abx - now still with pain but controlled on po meds. Reviewed with patient that pain will continue but she continues to be afebrile and is now tolerating po (was not able to eat prior to admission) and can have continued f/u as an outpatient.. Mefoxitin/Doxy/Flagyl ordered - now on for approx 48 hours - last dose will be at 1500 - plan to discharge at that time. Then discharge home on 2 wks of Abx - Doxy/Flagyl.. Rocephin given in ER. GC/ Chlam neg (2) Trichomonas infection Is this a current diagnosis for this admission?: Yes Summary: Metronidazole 2 grams po given on 09/24 and pt instructed to have her partner treated (3) Uterine fibroid Is this a current diagnosis for this admission?: Yes Summary: known sig uterine fibroids causing DUB/menorrhagia. Seen in office and was supposed to have RA hyst with Robin salpingectomy in 08/2016 but never followed through with surgery. Will need to f/u in office to get this scheduled again in the future after infection clears. needs demand planner to help with medicaid to cover surgery and hopefully hospital stay - Additional Information Discharge Diet: As Tolerated, Regular Discharge Activity: Activity As Tolerated, Pelvic Rest Prescriptions: Oxycodone HCl/Acetaminophen [Percocet 5-325 mg Tablet] 2 tab PO Q4HP PRN 7 Days #28 tablet PRN Reason: For Pain Hydroxyzine Pamoate [Vistaril 50 mg Capsule] 50 mg PO Q6HP PRN 7 Days #28 capsule PRN Reason: Itching Doxycycline Hyclate [Vibramycin 100 mg Tablet] 100 mg PO Q12 14 Days #28 tablet Metronidazole 500 mg PO BID 14 Days #28 tablet Home Medications: Doxycycline Hyclate [Vibramycin 100 mg Tablet] 100 mg PO Q12 14 Days #28 tablet 09/26/17 Hydroxyzine Pamoate [Vistaril 50 mg Capsule] 50 mg PO Q6HP PRN 7 Days #28 capsule 09/26/17 Metronidazole 500 mg PO BID 14 Days #28 tablet 09/26/17 Oxycodone HCl/Acetaminophen [Percocet 5-325 mg Tablet] 2 tab PO Q4HP PRN 7 Days #28 tablet 09/26/17 History of Present Illness History of Present Illness: ALBIN DEL CASTILLO is a 47 year old female (H/o ectopic) with known uterine fibroids and history of bilateral hydrosalpinx noted in 2015. She was planned to have RA Hyst with Robin Salpingectomy in 08/2016 but apparently never came in for procedure. Also noted at that time to have complex left ovarian cyst (neg CA 125/19-9) which has apparently resolved at this time. She has not been seen in our office in 08/2016 when she had hysterectomy consult for RA hyst as above. She presents today with several day history of pain in RLQ that is "exactly like when she had her last TOA". She reports that she stayed at home as long as she could but can not take the pain anymore and that she has not eaten in 3 days due to the pain. She reports that she is sexually active with one person and has been with that person for 3 years. She reports that she had TOA in the past in approx 7 years ago on the same side and it was due to chlamydia. Hospital Course Hospital Course: Admitted on 09/24 for TOA and need for pain control. patient began to tolerate po on 09/24 after not eating in days per pt. Then on 09/25 although still in pain - pt had improved. now on abx for 48 and doing well. Still afebrile and meets criteria for discharge. Physical Exam - Physical Exam Vital Signs: Temp Pulse Resp BP Pulse Ox 99.0 F 88 17 112/76 97 09/26/17 10:16 09/26/17 10:16 09/26/17 10:16 09/26/17 10:16 09/26/17 10:16 Intake & Output 09/25/17 09/26/17 09/27/17 06:59 06:59 06:59 Intake Total 200 1400 Balance 200 1400 General appearance: PRESENT: no acute distress, well-developed, well-nourished Head exam: PRESENT: atraumatic, normocephalic Respiratory exam: PRESENT: clear to auscultation robin, symmetrical, unlabored Cardiovascular exam: PRESENT: RRR. ABSENT: diastolic murmur, rubs, systolic murmur Pulses: PRESENT: normal dorsalis pedis pul, +2 pedal pulses bilateral Vascular exam: PRESENT: normal capillary refill GI/Abdominal exam: PRESENT: normal bowel sounds, soft, tenderness - RLQ ttp unchanged.. ABSENT: distended, guarding, mass, organolmegaly, rebound Rectal exam: PRESENT: deferred Extremities exam: PRESENT: full ROM. ABSENT: calf tenderness, clubbing, pedal edema Neurological exam: PRESENT: alert, awake, oriented to person, oriented to place , oriented to time, oriented to situation, CN II-XII grossly intact. ABSENT: motor sensory deficit Psychiatric exam: PRESENT: appropriate affect, normal mood. ABSENT: homicidal ideation, suicidal ideation Skin exam: PRESENT: dry, intact, warm. ABSENT: cyanosis, rash Result Impressions: Abdomen/Pelvis CT 09/24/17 10:00 IMPRESSION: Enlarged fibroid uterus. Complex right ovarian cyst versus tubo- ovarian abscess, or hydrosalpinx/pyosalpinx. Status: Imported from PACS Plan Discharge Plan: Discharge to home
[2017-09-26 17:13] VITALS: BP 111/79
== END 2017-09-26 17:01 | disposition home or self-care (01) ==
LOC: ER 08:51 → EH 11:53 → 2N 13:30
PROVIDERS: ADMIT Student in an Organized Health Care Education/Training Program; ATTEND Student in an Organized Health Care Education/Training Program
DX: N70.93 Salpingitis and oophoritis, unspecified (principal); A59.09 Other urogenital trichomoniasis; D25.9 Leiomyoma of uterus, unspecified; R10.31 Right lower quadrant pain; F17.210 Nicotine dependence, cigarettes, uncomplicated; I10 Essential (primary) hypertension
CPT/HCPCS: 99406; 99285; 96372; 96374; 96375; 36415; 87210; 83690; 85025; 81025; 80053; 81001; 87491; 87591; 74177; G0378 ×4; J1200 ×2; J0694 ×3; J2765; J1170; J0696

== ENCOUNTER → 2020-04-05 | Outpatient (CLI) | payer SELFPAY ==
--- NOTE | 2020-04-05 14:37 | ER RDC ASSESSMENT REPORT ---
Intake - In the Last 14 days Have you traveled outside [place]?: No Have you been in close contact with someone CONFIRMED: Yes Worked in Healthcare?: No - Symptoms Subjective Fever([place] feverish): No Chills: No Muscule Aches: No Runny Nose: No Sore Throat: No Cough (New or worsening chronic cough): No Shortness of breath: No Nausea or Vomiting: No Headache: No Abdominal Pain: No Diarrhea(3 or more loose stools in last 24 hours): No - Do you have any of the following Chronic lung disease: Asthma or emphysema or COPD: No Cystic Fibrosis: No Diabetes: No High Blood Pressure: No Cardiovascular Disease: No Chronic Kidney Disease: No Chronic Liver Disease: No Chronic blood disorder like Sickle Cell Disease: No Weak immune system due to disease or medication: No Neurologic condition that limits movement: No Developmental delay - Moderate to Severe: No Recent (within past 2 weeks) or current : No Morbid Obesity (>100 pounds over ideal weight): No - Objective Temperature: 99.1 F Pulse Rate: 73 Respiratory Rate: 18 Blood Pressure: 146/79 O2 Sat by Pulse Oximetry: 97 Objective: Patient is a 49-year-old female, who presents today for COVID-19 screening. Disposition: Home; Selfcare General - General Stated Complaint: COVID-19 screening Mode of Arrival: Ambulatory Information source: Patient Notes: The patient was evaluated during the global COVID-19 pandemic. That diagnosis was suspected/considered upon initial presentation. Their evaluation, treatment, and testing was consistent with current guidelines for patients who present with complaints or symptoms that may be related to COVID-19. Patient reports having close contact exposure to a COVID-19 lab confirmed positive individual. - HPI Patient complains to provider of: Asymptomatic, no complaint Quality of pain: No pain Severity: None Pain Level: Denies Associated symptoms: None Exacerbated by: Denies Relieved by: Denies Similar symptoms previously: No Recently seen / treated by doctor: No - Related Data Allergies/Adverse Reactions: No Known Allergies Allergy (Verified 09/24/17 08:52) Past Medical History - General Information source: Patient - Social History Smoking Status: Current Every Day Smoker Cigarette use (# per day): Yes - Half pack per day Chew tobacco use (# tins/day): No Smoking Education Provided: Yes Frequency of alcohol use: Social Drug Abuse: None Occupation: Unemployed Lives with: Family Family History: DM, Hyperlipidemia, Hypertension, Malignancy Patient has suicidal ideation: No Patient has homicidal ideation: No - Past Medical History Cardiac Medical History: Reports: Hx Hypertension Pulmonary Medical History: Reports: Hx Bronchitis - as a child Renal/ Medical History: Reports: Hx Ectopic . Denies: Hx Ovarian Cysts, Hx Peritoneal Dialysis Malignancy Medical History: Denies: Hx Breast Cancer, Hx Ovarian Cancer Psychiatric Medical History: Reports: Hx Bipolar Disorder Past Surgical History: Reports: Hx Abdominal Surgery - ectopic , Hx Dilation and Curettage, Hx Gynecologic Surgery - r/t gonorrhea, Hx Tonsillectomy, Other - Vertical midline incision with ectopic /tubes clipped d/t ectopic Physical Exam - General General appearance: Appears well In distress: None Notes: PHYSICAL EXAMINATION: GENERAL: Well-appearing with No Acute Distress noted. HEAD: Atraumatic, Normocephalic. EYES: Sclera anicteric, Conjunctiva are pink and moist. ENT: Nares patent. Moist mucous membranes. NECK: Normal range of motion, supple without lymphadenopathy. LUNGS: CTAB and equal. No wheezes rales or rhonchi. HEART: Regular rate and rhythm without murmurs. ABDOMEN: Soft, nontender, normal bowel sounds, no guarding. EXTREMITIES: Normal range of motion, no pitting edema. No cyanosis. BACK: No midline or CVA tenderness. No step-off or deformity. NEUROLOGICAL: Cranial nerves grossly intact. Normal speech. Normal gait. PSYCH: Calm, Cooperative, and answers questions appropriately. Normal mood and affect. SKIN: Warm, Dry, Normal color and Turgor, No obvious lesions or rash noted. Diagnostic Results Laboratory Results: Patient advised at this time they are considered a Person Under Investigation (PUI) for the COVID-19 Coronavirus. They have been made aware it is currently taking 3 to 5 days to receive their results. Patient advised The [facility] Department will call to notify them of a POSITIVE result, and an [facility] team foreman will call to notify them of a NEGATIVE result. Patient Education/Counseling Counseling/Education: Patient presents with upper respiratory symptoms worrisome for possible COVID- 19. Patient does not have symptoms worrisome as an emergency such as difficulty breathing, shortness of breath, chest pain, pressure, confusion or cyanosis. Patient appears suitable for discharge. Patient's vital signs are stable and patient is nontoxic in appearance. Good return precautions have been discussed with patient, patient verbalized understanding and is agreeable with discharge plan of care at this time. Patient provided COVID-19 discharge instructions to include: As a person under investigation for COVID-19, the [facility], division of public health advises you to adhere to the following guidance until your test results are reported to you. If your test result is positive, you will receive additional information from your provider and your local health department at that time. Remain at home until you are cleared by the health provider or public health authorities. Keep a log of visitors to your home, notify any visitors to your home of your isolation status. If you plan to move to a new address or leave the county, notify the local health department in your County. Call your doctor or seek care if you have an urgent medical need. Before seeking medical care, call ahead to get instructions from the provider before arriving at the medical office clinic or hospital. Notify them that you are being tested for the virus that causes COVID-19 so that arrangements can be made, as necessary, to prevent transmission to others in the healthcare setting. Next, notify the local health department in your county. If a medical emergency arises and you need to call 911, inform dispatch and the first responders that you are being tested for the virus that causes COVID-19. Next, notify the local health department in your county. Patient provided education on smoking cessation and the harmful effects of smoking, especially in the presence of Co-morbid conditions such as Hypertension, Diabetes, and/or other chronic illnesses. Patient verbalized understanding of smoking cessation education, and the increased health benefits of quitting. Guidance for worsening S/SX: For worsening symptoms, patient has been advised to contact their Primary Care Provider, or go to the nearest Emergency Department. RDC Discharge - Discharge Clinical Impression: URI (upper respiratory infection), COVID-19 Screening Condition: Stable Disposition: Home; Selfcare
[2020-04-05 14:38] VITALS: BP 146/79
== END ==
LOC: RDC 12:49
PROVIDERS: ATTEND Nurse Practitioner Family
DX: Z20.822 Contact with and (suspected) exposure to COVID-19 (principal); I10 Essential (primary) hypertension; E11.9 Type 2 diabetes mellitus without complications; F31.9 Bipolar disorder, unspecified; F17.210 Nicotine dependence, cigarettes, uncomplicated; Z71.6 Tobacco abuse counseling
CPT/HCPCS: 87635; C9803